=== PATIENT | female | born 1995 | race Caucasian/White ===

== ENCOUNTER → 2019-07-02 | Outpatient (CLI) | payer MEDICAID ==
--- NOTE | 2019-07-03 14:57 | CT ---
EXAMINATION TYPE: CT abdomen pelvis w con DATE OF EXAM: 07/02/2019 HISTORY: Left lower quadrant abdominal pain and constipation. CT DLP: 360.4mGycm Automated Exposure Control for Dose Reduction was Utilized. CONTRAST: CT scan of the abdomen and pelvis is performed with IV Contrast, patient injected with 100ml mL of Is ovue 300. COMPARISON: None. FINDINGS: LUNG BASES: No significant abnormality is appreciated. LIVER/GB: Borderline hepatic steatosis with lower attenuation of the hepatic parenchyma in the spleen (nearly 20 Hounsfield units lower). PANCREAS: No significant abnormality is seen. No ductal dilatation. SPLEEN: No splenomegaly. ADRENALS: No significant abnormality is seen. KIDNEYS: Kidneys enhance and excrete symmetrically without hydronephrosis. BOWEL: Mild degree colonic fecal stasis. No dilated large or small bowel. Appendix is low-lying in th e pelvis but within normal limits of size partially contrast-filled. UTERUS/ADNEXA: Crenulated appearing follicle is seen within the right adnexa, likely an involuting he morrhagic cyst. Small amount of free fluid in the posterior cul-de-sac is likely physiologic in natur e. The cervix is ill-defined and direct visualization is recommended. The uterus is heterogenous like ly related to the phase of menses. LYMPH NODES: No greater than 1cm abdominal or pelvic lymph nodes are appreciated. OSSEOUS STRUCTURES: No suspicious abnormality. IMPRESSION: 1. Crenulated appearing right adnexal lesion, likely an involuting hemorrhagic cyst. Small amount of free fluid in the posterior cul-de-sac is likely physiologic in nature. 2. Cervix is ill-defined on CT and heterogenous. Direct visualization is recommended. 3. Borderline early hepatic steatosis.
== END | disposition home or self-care (01) ==
LOC: RADCTMAIN 14:53
PROVIDERS: ATTEND Family Medicine
DX: K76.0 Fatty (change of) liver, not elsewhere classified (principal); N94.89 Other specified conditions associated with female genital organs and menstrual cycle
CPT/HCPCS: 74177; Q9967